=== PATIENT | female | born 1955 | race Caucasian/White ===

== ENCOUNTER 2019-11-05 17:34 | Outpatient (CLI) | payer OTHER ==
--- NOTE | 2019-11-06 04:43 | Ultrasound Report ---
Reason: EDEMA OF LOWER EXTREMITY Procedure Date: 11/05/2019 Accession Number: [id number] / [id number] Procedure: US - Duplex Ext Veins Right CPT Code: Final Report FULL RESULT: EXAM: RIGHT LOWER EXTREMITY VENOUS ULTRASOUND EXAM DATE: 11/05/2019 07:10 PM. CLINICAL HISTORY: EDEMA OF LOWER EXTREMITY. COMPARISON: None. TECHNIQUE: Real-time sonographic vascular imaging was performed by the face boss through the lower extremity utilizing both color-flow and Doppler spectral analysis. Multiple apprenticeship representative static images were saved for review. FINDINGS: Common Femoral Vein (CFV): Normal. CFV-GSV Junction: Normal. Profunda Femoral Vein (PFV): Normal. Femoral Vein (FV) Prox: Normal. Femoral Vein (FV) Mid: Normal. Femoral Vein (FV) Dist: Normal. Popliteal Vein: Normal. Posterior Tibial Veins: Normal. Peroneal Veins: Normal. Contralateral Side CFV: Normal. Other: A focal area of contained simple fluid is seen in the soft tissues of the anterior knee measuring 5.7 x 0.7 x 2.3 cm. An additional area of fluid is seen in the soft tissues of the lateral ankle measuring 1.4 x 1.0 cm. There is no surrounding hyperemia or soft tissue edema. IMPRESSION: No evidence for deep venous thrombosis. Focal areas of simple fluid in the soft tissues without evidence of infection. RADIA
== END 2019-11-05 17:35 | disposition home or self-care (01) ==
LOC: DI 17:34
PROVIDERS: ATTEND Internal Medicine
DX: R60.0 Localized edema (principal)

== ENCOUNTER 2023-10-11 11:36 | Emergency (ER) | payer MEDICARE, OTHER ==
--- NOTE | 2023-10-11 12:29 | ED Physician Documentation ---
PD HPI CHEST PAIN - Stated complaint Stated Complaint: DIZZINESS,CHEST HEAVINESS,ARM PX - Chief complaint Chief Complaint: Cardiac - History obtained from History obtained from: Patient - Additional information Additional information: 68-year-old female who has a history of asthma and hypertension presents with an episode of chest pain. She felt chest tightness in the substernal area that radiated into the left arm at approximately 1030 this morning. At that time the patient was doing a number of activities in the house getting ready to go to an exercise class. She felt dizzy when the symptoms came on and lay down on the couch. After for 5 minutes, the symptoms subsided. She did not take any medication for this issue. The patient currently has no chest pain. She does not feel back to baseline but feeling substantially better. She has no history of heart disease to her knowledge, had a prior stress test in about 2018 which was reportedly normal. She does state a communication and outreach manager in [place] told her that she had some sort of "Fibrous" changes in the base of her lungs and that she would "always have breathing problems." Patient states she does have allergies and allergy induced asthma symptoms which she is managed with inhalers. She did try her albuterol for this issue today though it does not feel like her asthma. She otherwise has felt well today, woke up in normal state of health, has not had a fever, no cough or URI symptoms, no abdominal pain nausea vomiting or diarrhea. She has not had any sick contacts. No recent immobility, no prior DVT or PE. Review of Systems Constitutional: reports: Reviewed and negative Eyes: reports: Reviewed and negative Ears: reports: Reviewed and negative Nose: reports: Reviewed and negative Throat: reports: Swallowed foreign body Cardiac: reports: Chest pain / pressure. denies: Palpitations, Pedal edema, Calf pain Respiratory: reports: Dyspnea. denies: Cough, Hemoptysis, Wheezing GI: reports: Reviewed and negative : reports: Reviewed and negative Skin: reports: Reviewed and negative Musculoskeletal: reports: Reviewed and negative Neurologic: reports: Reviewed and negative Psychiatric: reports: Reviewed and negative Endocrine: reports: Reviewed and negative PD PAST MEDICAL HISTORY - Past Medical History Past Medical History: Yes Cardiovascular: Hypertension - Past Surgical History Past Surgical History: Yes - Allergies Allergies/Adverse Reactions: Allergies Allergy/AdvReac Type Severity Reaction Status Date / Time Penicillins Allergy Anaphylaxis Verified 10/11/23 11:55 - Social History Does the pt smoke?: No Smoking Status: Never smoker PD ED PE NORMAL - Vitals Vital signs reviewed: Yes - General General: Alert and oriented X 3, No acute distress, Well developed/nourished - HEENT HEENT: Atraumatic, Pharynx benign - Neck Neck: Supple, no meningeal sign - Cardiac Cardiac: RRR, No murmur, No gallop, No rub - Respiratory Respiratory: No respiratory distress, Other (Scattered expiratory wheezes, primarily left-sided.) - Abdomen Abdomen: Normal bowel sounds, Soft, Non tender, Non distended - Derm Derm: Normal color, Warm and dry, No rash - Extremities Extremities: No edema, No calf tenderness / cord - Neuro Neuro: Alert and oriented X 3 Eye Opening: Spontaneous Motor: Obeys Commands Verbal: Oriented GCS Score: 15 - Psych Psych: Normal mood, Normal affect Results - Vitals Vitals: Vital Signs - 24 hr 10/11/23 11:50 Temperature 36.6 C Heart Rate 81 Respiratory 18 Rate Blood Pressure 147/84 H O2 Saturation 98 - EKG (time done) No standard instances EKG releavant findings:: EKG personally interpreted by author of this note. Relevant findings are: Rate: Rate (enter#) (73) Rhythm: NSR [place]: LAD Intervals: Normal LA QRS: LVH Ischemia: Normal ST segments Compare to prior EKG: Old EKG unavailable Computer interpretation: Agree with computer - Labs Labs: Laboratory Tests 10/11/23 10/11/23 12:15 12:15 WBC 5.5 RBC 4.52 Hgb 13.0 Hct 40.4 MCV 89.4 MCH 28.8 MCHC 32.2 RDW 14.7 Plt Count 320 MPV 9.0 Neut # (Auto) 2.9 Lymph # (Auto) 1.7 [place] # (Auto) 0.6 Eos # (Auto) 0.2 Baso # (Auto) 0.1 Absolute Nucleated RBC 0.00 Nucleated RBC % 0.0 Sodium 138 Potassium 3.7 Chloride 99 L Carbon Dioxide 33 H Anion Gap 6.0 BUN 21 H Creatinine 0.8 Estimated GFR (MDRD) 72 L Glucose 67 L Calcium 10.3 Total Bilirubin 0.4 AST 29 ALT 39 Alkaline Phosphatase 93 Troponin I High Sens 4.3 Total Protein 8.0 Albumin 4.7 Globulin 3.3 Albumin/Globulin Ratio 1.4 Lipase 60 - Rads (name of study) No standard instances Relevant Findings:: Final report received PD Medical Decision Making - ED course Complexity details: reviewed results, re-evaluated patient, considered differential, d/w patient, d/w family Departure - Departure Forms: PCP List
[2023-10-11 12:36] LABS: BASOPHILS # (AUTO) 0.1 10^3/uL (0.0-0.1); BASOPHILS % (AUTO) 0.9 %; EOSINOPHILS # (AUTO) 0.2 10^3/uL (0.0-0.7); EOSINOPHILS % (AUTO) 4.4 %; HCT - HEMATOCRIT 40.4 % (37.0-47.0); LYMPHOCYTES # (AUTO) 1.7 10^3/uL (1.5-3.5); LYMPHOCYTES % (AUTO) 30.8 %; MEAN CORPUSCULAR HEMOGLOBIN 28.8 pg (27.0-31.0); MEAN CORPUSCULAR HGB CONC 32.2 g/dL (32.0-36.0); MEAN CORPUSCULAR VOLUME 89.4 fL (81.0-99.0); MONOCYTES # (AUTO) 0.6 10^3/uL (0.0-1.0); MONOCYTES % (AUTO) 10.7 %; NEUTROPHILS # (AUTO) 2.9 10^3/uL (1.5-6.6); PLT - PLATELET COUNT 320 10^3/uL (130-450); RED BLOOD COUNT 4.52 10^6/uL (4.20-5.40); RED CELL DISTRIBUTION WIDTH 14.7 % (12.0-15.0); WHITE BLOOD COUNT 5.5 x10^3/uL (4.8-10.8)
[2023-10-11 12:37] LABS: ALBUMIN 4.7 g/dL (3.2-5.5); ALBUMIN/GLOBULIN RATIO 1.4 (1.0-2.2); BILIRUBIN,TOTAL 0.4 mg/dL (0.2-1.0); CALCIUM 10.3 mg/dL (8.5-10.3); CREATININE 0.8 mg/dL (0.6-1.3); POTASSIUM 3.7 mmol/L (3.5-4.5)
[2023-10-11 12:42] LABS: TROPONIN I HIGH SENSITIVITY 4.3 ng/L (2.3-14.8)
--- NOTE | 2023-10-11 12:50 | XRAY Report ---
PROCEDURE: Chest 1V INDICATIONS: Chest pain TECHNIQUE: One view of the chest was acquired. COMPARISON: None. FINDINGS: Surgical changes and devices: None. Lungs and pleura: No pleural effusions or pneumothorax. Lungs are clear. Mediastinum: Mediastinal contours appear normal. Heart size is normal. Bones and chest wall: No suspicious bony lesions. Overlying soft tissues appear unremarkable. IMPRESSION: No acute cardiopulmonary process. Reviewed by: Salma Brown MD on 10/11/2023 12:49 PM PST Approved by: Salma Brown MD on 10/11/2023 12:49 PM PST Station ID: [id number]
[2023-10-11 14:24] VITALS: BP 141/91; O2SAT 97
== END 2023-10-11 14:24 | disposition home or self-care (01) ==
LOC: ED 11:36
DX: R07.9 Chest pain, unspecified (principal)
CPT/HCPCS: 36415; 80053; 83690; 84484; 85025; 93005; 99283; 99284